=== PATIENT | female | born 2000 | race Caucasian/White ===

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

== ENCOUNTER 2022-01-07 15:46 | Emergency (ER) | payer OTHER ==
[~2022-01-07] VITALS: Ht 154.9 cm; Wt 64.9 kg
--- OUTSIDE RECORDS SUMMARY | 2022-01-07 15:54 | XMS ---
PreManage Notification: SARAH BETH RODRIGUEZ Security Sandfill Operator Events No recent Security Events currently on file CRITERIA MET - [facility] - Has Care Guidelines - [facility] - 2 Visits in 30 Days CARE PROVIDERS RADHA MCGUIRE [facility] 09/24/2019-Current PHONE: [phone] [facility] 06/08/2018-Current [facility] PHONE: Unknown Guidelines Source: [facility] Guidelines Date: 12/14/2021 Care Coordination: 11/30/21 PCP VISIT ATTACHED FOR CARE PLAN. SEE ATTACHMENTS. PATIENT IS SEEING PCP AND CAN COME IN FOR INJECTIONS FOR NAUSEA. HAS NOT BEEN FILLING RX FOR NAUSEA FOR HOME USE. HAS BEEN WORKED UP MANY TIMES FOR DX OF MILD GASTRITIS. BELIEVED TO BE AN EMOTIONAL COMPONENT. SUGGEST OR ENCOURAGE MENTAL HEALTH EVAL WITH [facility]. REMIND PATIENT SHE IS TO USE HOME NAUSEA MEDS. ALSO THAT ED IS NOT FOR CHRONIC PROBLEMS AND SHE IS TO CALL PCP OFFICE WHEN HOME MEDS ARE NOT WORKING. Additional care guidelines exist for the following facilities: [facility] ( 12/13/2019 ) Care History Medical/Surgical 09/02/2019 [facility] - UPDATE: PATIENT IS CURRENTLY WAITING TO ESTABLISH CARE WITH DR MCGUIRE - DR BABCOCK OFFICE - DR SEPULVEDA CURRENTLY REVIEWING PATIENT RECORDS - CHW CONTACTED [facility] GASTROENTEROLOGY OFFICE- DR THOMAS- [phone]-PATIENT HAS AN APT WITH DR THOMAS ON 09/16/19. - GOING FORWARD PLEASE HAVE ANY GASTRO COMPLICATIONS- ED RECORDS FAXED TO PATIENT CERTIFIED CAREGIVER WAS NOT AWARE OF ED VISITS AND WOULD LIKE TO HAVE MEDICAL RECORDS SENT TO HIS OFFICE IF PATIENT IS SEEN DUE TO GASTRO COMPLICATIONS. - [facility] MEDICAL RECORDS CONTACTED- PAST/RECENT ED RECORDS WILL BE FAXED TO CERTIFIED CAREGIVER OFFICE. 08/23/2019 [facility] PLEASE REFER PATIENT TO THE WALK IN CLINIC FOR -CHRONIC NAUSEA SYMPTOMS- PATIENT NEEDS TO FOLLOW UP WITH A PRIMARY CARE PHYSICIAN AND ESTABLISH CARE(PROVIDER DISCRETION) 08/21/2019 [facility] - W RECEIVED CALL FROM PATIENT PCP OFFICE. [facility] IS NO LONGER PATIENT PCP. - PATIENT NEEDS TO ESTABLISH CARE WITH A PRIMARY CARE PHYSICIAN. E.D. VISIT COUNT (12 MO.) 6 [facility] TOTAL 6 NOTE: Visits indicate total known visits. ED/UCC VISIT TRACKING (12 MO.) 01/07/2022 15:46 [facility] TYPE: Emergency COMPLAINT: - VOMITING 12/11/2021 10:04 [facility] TYPE: Emergency COMPLAINT: - VOMITING DIAGNOSES: - Cyclical vomiting syndrome unrelated to migraine - Other buttermaker (current) drug therapy - Upper abdominal pain, unspecified 12/09/2021 11:58 [facility] TYPE: Emergency COMPLAINT: - VOMITING DIAGNOSES: - Cyclical vomiting syndrome unrelated to migraine - Vomiting, unspecified - Other buttermaker (current) drug therapy 11/20/2021 12:[address] [facility] [place] TYPE: Emergency COMPLAINT: - VOMITING, FOR A WEEK DIAGNOSES: - Cyclical vomiting syndrome unrelated to migraine - Other buttermaker (current) drug therapy - Nausea with vomiting, unspecified 06/25/2021 02:[address] [facility] [place] TYPE: Emergency COMPLAINT: - VOMITING DIAGNOSES: - Nausea with vomiting, unspecified - Other prison (current) drug therapy - Cyclical vomiting syndrome unrelated to migraine 04/07/2021 18:[address] [facility] [place] TYPE: Emergency COMPLAINT: - VOMITING, ABD PAIN DIAGNOSES: - Cyclical vomiting syndrome unrelated to migraine - Vomiting, unspecified INPATIENT VISIT TRACKING (12 MO.) No inpatient visits to display in this time frame [id number]
[2022-01-07] MEDS ORDERED: OMEPRAZOLE40 MG PO (16:05)
[2022-01-07] MEDS ORDERED: ONDANSETRON ODT8 MG PO (19:02)
--- NOTE | 2022-01-09 13:45 | EKG ---
[facility] [address] [facility] [place], [place] [address] S[address] Sinus tachycardia Nonspecific ST abnormality Abnormal ECG No previous ECGs available Confirmed by JULITA LUCIANO MD ([id number]) on 01/09/2022 1:44:53 PM Electronically Signed By: JULITA LUCIANO MD 01/09/22 1345 PATIENT NAME: SARAH BETH RODRIGUEZ LACEY Electrocardiogram DATE OF : [birth year] PHYSICIAN: JULITA LUCIANO MD REPORT #: [id number] REPORT IS CONFIDENTIAL AND NOT TO BE RELEASED WITHOUT AUTHORIZATION
== END 2022-01-07 20:02 | disposition home or self-care (01) ==
LOC: ED 15:46
DX: E86.0 Dehydration (principal); R11.10 Vomiting, unspecified; R00.0 Tachycardia, unspecified; Z79.899 Other long term (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
CPT/HCPCS: 36415; 80053; 81001; 83690; 84703; 85025; 93005; 93010; 96374; 96375; 99284-25; J1200; J1630; J2405; J2765; J7030

== ENCOUNTER 2022-03-10 15:33 | Emergency (ER) | payer OTHER ==
[~2022-03-10] VITALS: Ht 154.9 cm; Wt 67.4 kg
[~2022-03-10 15:33] MED LIST changes: +OMEPRAZOLE40 MG PO
--- OUTSIDE RECORDS SUMMARY | 2022-03-10 15:40 | XMS ---
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 ( 12/13/2019 ) Care History Medical/Surgical 09/02/2019 [facility] - UPDATE: PATIENT IS CURRENTLY WAITING TO ESTABLISH CARE WITH DR MCGUIRE - DR BABCOCK OFFICE - DR SEPULVEDA CURRENTLY REVIEWING PATIENT RECORDS - CHW CONTACTED [facility] GASTROENTEROLOGY OFFICE- DR THOMAS- [phone]-PATIENT HAS AN APT WITH DR THOMAS ON 09/16/19. - GOING FORWARD PLEASE HAVE ANY GASTRO COMPLICATIONS- ED RECORDS FAXED TO [phone] PATIENT CONFERENCE SERVICES DIRECTOR WAS NOT AWARE OF ED VISITS AND WOULD LIKE TO HAVE MEDICAL RECORDS SENT TO HIS OFFICE IF PATIENT IS SEEN DUE TO GASTRO COMPLICATIONS. - [facility] MEDICAL RECORDS CONTACTED- PAST/RECENT ED RECORDS WILL BE FAXED TO CONFERENCE SERVICES DIRECTOR OFFICE. 08/23/2019 [facility] PLEASE REFER PATIENT TO THE WALK IN CLINIC FOR -CHRONIC NAUSEA SYMPTOMS- PATIENT NEEDS TO FOLLOW UP WITH A PRIMARY CARE PHYSICIAN AND ESTABLISH CARE(PROVIDER DISCRETION) 08/21/2019 [facility] - W RECEIVED CALL FROM PATIENT PCP OFFICE. [facility] IS NO LONGER PATIENT PCP. - PATIENT NEEDS TO ESTABLISH CARE WITH A PRIMARY CARE PHYSICIAN. E.D. VISIT COUNT (12 MO.) 7 [facility]. TOTAL 7 NOTE: Visits indicate total known visits. ED/UCC VISIT TRACKING (12 MO.) 03/10/2022 15:33 [facility] TYPE: Emergency COMPLAINT: - VOMITING 01/07/2022 15:46 [facility] TYPE: Emergency COMPLAINT: - VOMITING DIAGNOSES: - Vomiting, unspecified - Other rn long term care (current) drug therapy - Tachycardia, unspecified - Dehydration 12/11/2021 10:04 [facility] [place] TYPE: Emergency COMPLAINT: - VOMITING DIAGNOSES: - Cyclical vomiting syndrome unrelated to migraine - Other retirement (current) drug therapy - Upper abdominal pain, unspecified 12/09/2021 11:58 [facility] [place] [facility] [place] TYPE: Emergency COMPLAINT: - VOMITING DIAGNOSES: - Cyclical vomiting syndrome unrelated to migraine - Vomiting, unspecified - Other retirement (current) drug therapy 11[facility]20/2021 12[facility] COMPLAINT: - VOMITING, FOR A WEEK DIAGNOSES: - Cyclical vomiting syndrome unrelated to migraine - Other retirement (current) drug therapy - Nausea with vomiting, unspecified 06/25/2021 02:[facility] COMPLAINT: - VOMITING DIAGNOSES: - Nausea with vomiting, unspecified - Other retirement (current) drug therapy - Cyclical vomiting syndrome unrelated to migraine 04/07/2021 18:[address] [facility] [place] TYPE: Emergency COMPLAINT: - VOMITING, ABD PAIN DIAGNOSES: - Cyclical vomiting syndrome unrelated to migraine - Vomiting, unspecified INPATIENT VISIT TRACKING (12 MO.) No inpatient visits to display in this time frame [id number]
== END 2022-03-10 18:57 | disposition home or self-care (01) ==
LOC: ED 15:33
DX: R11.11 Vomiting without nausea (principal); Z88.8 Allergy status to other drugs, medicaments and biological substances; Z79.899 Other long term (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
CPT/HCPCS: 36415; 80053; 81001; 83690; 84703; 85025; 96361; 96374; 96375; 99284-25; J1200; J1885; J2765; J7030

== ENCOUNTER 2022-03-11 16:56 | Emergency (ER) | payer OTHER ==
[~2022-03-11] VITALS: Ht 154.9 cm; Wt 67.4 kg
--- OUTSIDE RECORDS SUMMARY | 2022-03-11 17:04 | XMS ---
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 No recent Security Events currently on file CRITERIA MET - [facility] - Has Care Guidelines - [facility] - 2 Visits in 30 Days - 6 ED Visits in 6 Months CARE PROVIDERS RADHA MCGUIRE [facility] 09/24/2019-Current PHONE: [phone] [facility] 06/08/2018-Current [facility] PHONE: Unknown Guidelines Source: [facility] Guidelines Date: 12/14/2021 Care Coordination: 11/30/21 PCP [...] care guidelines exist for the following facilities: [facility] ( 12/13/2019 ) Care History Medical/Surgical 09/02/2019 [facility] - UPDATE: PATIENT IS CURRENTLY WAITING TO ESTABLISH CARE WITH DR MCGUIRE - DR BABCOCK OFFICE - DR SEPULVEDA CURRENTLY REVIEWING PATIENT RECORDS - CHW CONTACTED [facility] GASTROENTEROLOGY OFFICE- DR THOMAS- [phone]-PATIENT HAS AN APT WITH DR THOMAS ON 09/16/19. - GOING FORWARD PLEASE HAVE ANY GASTRO COMPLICATIONS- ED RECORDS FAXED TO PATIENT RUBBER STAMP MAKER WAS NOT AWARE OF ED VISITS AND WOULD LIKE TO HAVE MEDICAL RECORDS SENT TO HIS OFFICE IF PATIENT IS SEEN DUE TO GASTRO COMPLICATIONS. - [facility] MEDICAL RECORDS CONTACTED- PAST/RECENT ED RECORDS WILL BE FAXED TO RUBBER STAMP MAKER OFFICE. 08/23/2019 [facility] PLEASE REFER PATIENT TO THE WALK IN CLINIC FOR -CHRONIC NAUSEA SYMPTOMS- PATIENT NEEDS TO FOLLOW UP WITH A PRIMARY CARE PHYSICIAN AND ESTABLISH CARE(PROVIDER DISCRETION) 08/21/2019 [facility] - CHW RECEIVED CALL FROM PATIENT PCP OFFICE. [facility] IS NO LONGER PATIENT PCP. - PATIENT NEEDS TO ESTABLISH CARE WITH A PRIMARY CARE PHYSICIAN. E.D. VISIT COUNT (12 MO.) 8 [facility]. TOTAL 8 NOTE: Visits indicate total known visits. ED/UCC VISIT TRACKING (12 MO.) 03/11/2022 16:57 [facility] TYPE: Emergency COMPLAINT: - VOMITING, CHILLS 03/10/2022 15:33 [facility] [place] TYPE: Emergency COMPLAINT: - VOMITING 01/07/2022 15:46 [facility] [place] TYPE: Emergency COMPLAINT: - VOMITING DIAGNOSES: - Vomiting, unspecified - Other intermediate frame tender (current) drug therapy - Tachycardia, unspecified - Dehydration 12/11/2021 10:[facility] [place] TYPE: Emergency COMPLAINT: - VOMITING DIAGNOSES: - Cyclical vomiting syndrome unrelated to migraine - Other intermediate frame tender (current) drug therapy - Upper abdominal pain, unspecified 12/09/2021 11:58 [facility] [place] [facility] COMPLAINT: - VOMITING DIAGNOSES: - Cyclical vomiting syndrome unrelated to migraine - Vomiting, unspecified - Other intermediate (current) drug therapy 11/20/2021 12:53 [facility] [place] [facility]: [facility] COMPLAINT: - VOMITING, FOR A WEEK DIAGNOSES: - Cyclical vomiting syndrome unrelated to migraine - Other intermediate (current) drug therapy - Nausea with vomiting, unspecified 06/25/2021 02:08 [facility] TYPE: Emergency COMPLAINT: - VOMITING DIAGNOSES: - Nausea with vomiting, unspecified - Other intermediate (current) drug therapy - Cyclical vomiting syndrome unrelated to migraine 04/07/2021 18:57 [facility] TYPE: Emergency COMPLAINT: - VOMITING, ABD PAIN DIAGNOSES: - Cyclical vomiting syndrome unrelated to migraine - Vomiting, unspecified INPATIENT VISIT TRACKING (12 MO.) No inpatient visits to display in this time frame [email or web address]
== END 2022-03-11 21:45 | disposition left against medical advice (07) ==
LOC: ED 16:56
DX: R10.13 Epigastric pain (principal); Z88.8 Allergy status to other drugs, medicaments and biological substances; Z79.899 Other long term (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
CPT/HCPCS: 36415; 80048; 82553; 83735; 96361; 96374; 96375; 99284-25; J0515; J1200; J1790; J2060; J7030

== ENCOUNTER 2022-04-26 14:17 | Emergency (ER) | payer OTHER ==
[~2022-04-26] VITALS: Ht 154.9 cm; Wt 68.3 kg
[~2022-04-26 14:17] MED LIST changes: +SERTRALINE HCL100 MG PO
--- OUTSIDE RECORDS SUMMARY | 2022-04-26 14:26 | XMS ---
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 - Patient with suicidal and/or homicidal ideations eloped. - Patient eloped with IV in place. Details: PATIENT LEFT AMA CRITERIA MET - [facility] - 2 Visits in 30 Days - [facility] - Has Care Guidelines - 6 ED Visits in 6 Months CARE PROVIDERS RADHA MCGUIRE [facility] 09/24/2019-Current PHONE: [phone] [facility] 06/08/2018-Current [facility] PHONE: Unknown Guidelines Source: [facility] Guidelines Date: 12/14/2021 Care Coordination: 11/30/21 [...] care guidelines exist for the following facilities: [facility] ( 12/13/2019 ) Care History Medical/Surgical 09/02/2019 [facility] - UPDATE: PATIENT IS CURRENTLY WAITING TO ESTABLISH CARE WITH DR MCGUIRE - DR BABCOCK OFFICE - DR SEPULVEDA CURRENTLY REVIEWING PATIENT RECORDS - CHW CONTACTED [facility] GASTROENTEROLOGY OFFICE- DR THOMAS- [phone]-PATIENT HAS AN APT WITH DR THOMAS ON 09/16/19. - GOING FORWARD PLEASE HAVE ANY GASTRO COMPLICATIONS- ED RECORDS FAXED TO PATIENT CLINICAL NURSE OCCUPATIONAL MEDICINE WAS NOT AWARE OF ED VISITS AND WOULD LIKE TO HAVE MEDICAL RECORDS SENT TO HIS OFFICE IF PATIENT IS SEEN DUE TO GASTRO COMPLICATIONS. - [facility] MEDICAL RECORDS CONTACTED- PAST/RECENT ED RECORDS WILL BE FAXED TO CLINICAL NURSE OCCUPATIONAL MEDICINE OFFICE. 08/23/2019 [facility] PLEASE REFER PATIENT TO THE WALK IN CLINIC FOR -CHRONIC NAUSEA SYMPTOMS- PATIENT NEEDS TO FOLLOW UP WITH A PRIMARY CARE PHYSICIAN AND ESTABLISH CARE(PROVIDER DISCRETION) 08/21/2019 [facility] - CHW RECEIVED CALL FROM PATIENT PCP OFFICE. [facility] IS NO LONGER PATIENT PCP. - PATIENT NEEDS TO ESTABLISH CARE WITH A PRIMARY CARE PHYSICIAN. E.D. VISIT COUNT (12 MO.) [address] [facility] TOTAL 10 NOTE: Visits indicate total known visits. ED/UCC VISIT TRACKING (12 MO.) 04/26/2022 14:18 [facility] [place] TYPE: Emergency COMPLAINT: - VOMITING, ABD PAIN 04/25/2022 16:18 [facility] [place] TYPE: Emergency COMPLAINT: - VOMITING 04/04/2022 18:49 [facility] [place] TYPE: Emergency COMPLAINT: - VOMITING DIAGNOSES: - Unspecified abdominal pain - Allergy status to other drugs, medicaments and biological substances - Allergy status to narcotic agent - Tachycardia, unspecified - Nausea with vomiting, unspecified - Other fpc (current) drug therapy 03/11/2022 16:57 [facility] [place] TYPE: Emergency COMPLAINT: - VOMITING, CHILLS DIAGNOSES: - Allergy status to other drugs, medicaments and biological substances - Epigastric pain - Other terminal manager (current) drug therapy 03/10/2022 15:33 [facility] [place] TYPE: Emergency COMPLAINT: - VOMITING DIAGNOSES: - Vomiting without nausea - Allergy status to other drugs, medicaments and biological substances - Unspecified abdominal pain - Other terminal manager (current) drug therapy 01/07/2022 15:46 [facility] [place] TYPE: Emergency COMPLAINT: - VOMITING DIAGNOSES: - Vomiting, unspecified - Other terminal manager (current) drug therapy - Tachycardia, unspecified - Dehydration 12/11/2021 10:04 [facility] [place] TYPE: Emergency COMPLAINT: - VOMITING DIAGNOSES: - Cyclical vomiting syndrome unrelated to migraine - Other terminal manager (current) drug therapy - Upper abdominal pain, unspecified 12/09/2021 11:58 [facility] [place] TYPE: Emergency COMPLAINT: - VOMITING DIAGNOSES: - Cyclical vomiting syndrome unrelated to migraine - Vomiting, unspecified - Other fpc (current) drug therapy 11/20/2021 12:53 [facility] [place] TYPE: Emergency COMPLAINT: - VOMITING, FOR A WEEK DIAGNOSES: - Cyclical vomiting syndrome unrelated to migraine - Other fpc (current) drug therapy - Nausea with vomiting, unspecified 06/25/2021 02:08 [facility] [place] TYPE: Emergency COMPLAINT: - VOMITING DIAGNOSES: - Nausea with vomiting, unspecified - Other fpc (current) drug therapy - Cyclical vomiting syndrome unrelated to migraine INPATIENT VISIT TRACKING (12 MO.) No inpatient visits to display in this time frame [email or web address]
[2022-04-26] MEDS ORDERED: ATIVAN1 MG PO (15:17)
== END 2022-04-26 16:44 | disposition home or self-care (01) ==
LOC: ED 14:17
DX: R11.15 Cyclical vomiting syndrome unrelated to migraine (principal); Z88.8 Allergy status to other drugs, medicaments and biological substances; Z79.899 Other long term (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
CPT/HCPCS: 36415; 80053; 84703; 85025; 96361; 96374; 96375; 99284-25; J1200; J2060; J2405; J7030

== ENCOUNTER 2022-04-28 02:55 | Emergency (ER) | payer OTHER ==
[~2022-04-28] VITALS: Ht 154.9 cm; Wt 62.2 kg
[~2022-04-28 02:55] MED LIST changes: +ATIVAN1 MG PO
--- OUTSIDE RECORDS SUMMARY | 2022-04-28 02:58 | XMS ---
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 - Patient with suicidal and/or homicidal ideations eloped. - Patient eloped with IV in place. Details: PATIENT LEFT AMA CRITERIA MET - 6 ED Visits in 6 Months - [facility] - Has Care Guidelines - [facility] - 2 Visits in 30 Days CARE PROVIDERS RADHA MCGUIRE [facility] 09/24/2019-Current PHONE: [phone] [facility] 06/08/2018-Current [facility] PHONE: Unknown Guidelines Source: [facility] Guidelines Date: 12/14/2021 Care Coordination: 11/30/21 [...] care guidelines exist for the following facilities: [facility] ( 12/13/2019 ) Care History Medical/Surgical 09/02/2019 [facility] - UPDATE: PATIENT IS CURRENTLY WAITING TO ESTABLISH CARE WITH DR MCGUIRE - DR BABCOCK OFFICE - DR SEPULVEDA CURRENTLY REVIEWING PATIENT RECORDS - CHW CONTACTED [facility] GASTROENTEROLOGY OFFICE- DR THOMAS- [phone]-PATIENT HAS AN APT WITH DR THOMAS ON 09/16/19. - GOING FORWARD PLEASE HAVE ANY GASTRO COMPLICATIONS- ED RECORDS FAXED TO PATIENT CUSTODIAL SUPERVISOR WAS NOT AWARE OF ED VISITS AND WOULD LIKE TO HAVE MEDICAL RECORDS SENT TO HIS OFFICE IF PATIENT IS SEEN DUE TO GASTRO COMPLICATIONS. - [facility] MEDICAL RECORDS CONTACTED- PAST/RECENT ED RECORDS WILL BE FAXED TO CUSTODIAL SUPERVISOR OFFICE. 08/23/2019 [facility] PLEASE REFER PATIENT TO THE WALK IN CLINIC FOR -CHRONIC NAUSEA SYMPTOMS- PATIENT NEEDS TO FOLLOW UP WITH A PRIMARY CARE PHYSICIAN AND ESTABLISH CARE(PROVIDER DISCRETION) 08/21/2019 [facility] - CHW RECEIVED CALL FROM PATIENT PCP OFFICE. [facility] IS NO LONGER PATIENT PCP. - PATIENT NEEDS TO ESTABLISH CARE WITH A PRIMARY CARE PHYSICIAN. E.D. VISIT COUNT (12 MO.) [address] [facility] TOTAL 11 NOTE: Visits indicate total known visits. ED/UCC VISIT TRACKING (12 MO.) 04/28/2022 02:56 [facility] [place] TYPE: Emergency COMPLAINT: - VOMITING 04/26/2022 14:18 [facility] [place] TYPE: Emergency COMPLAINT: - VOMITING, ABD PAIN 04/25/2022 16:18 [facility] [place] TYPE: Emergency COMPLAINT: - VOMITING 04/04/2022 18:49 [facility] [place] TYPE: Emergency COMPLAINT: - VOMITING DIAGNOSES: - Unspecified abdominal pain - Allergy status to other drugs, medicaments and biological substances - Allergy status to narcotic agent - Tachycardia, unspecified - Nausea with vomiting, unspecified - Other automatic teller machine servicer (current) drug therapy 03/11/2022 16:57 [facility] [place] TYPE: Emergency COMPLAINT: - VOMITING, CHILLS DIAGNOSES: - Allergy status to other drugs, medicaments and biological substances - Epigastric pain - Other halfway (current) drug therapy 03/10/2022 15:33 [facility] [place] TYPE: Emergency COMPLAINT: - VOMITING DIAGNOSES: - Vomiting without nausea - Allergy status to other drugs, medicaments and biological substances - Unspecified abdominal pain - Other halfway (current) drug therapy 01/07/2022 15:46 [facility] [place] TYPE: Emergency COMPLAINT: - VOMITING DIAGNOSES: - Vomiting, unspecified - Other halfway (current) drug therapy - Tachycardia, unspecified - Dehydration 12/11/2021 10:04 [facility] [place] TYPE: Emergency COMPLAINT: - VOMITING DIAGNOSES: - Cyclical vomiting syndrome unrelated to migraine - Other halfway (current) drug therapy - Upper abdominal pain, unspecified 12/09/2021 11:58 [facility] [place] TYPE: Emergency COMPLAINT: - VOMITING DIAGNOSES: - Cyclical vomiting syndrome unrelated to migraine - Vomiting, unspecified - Other automatic teller machine servicer (current) drug therapy 11/20/2021 12:53 [facility] [place] TYPE: Emergency COMPLAINT: - VOMITING, FOR A WEEK DIAGNOSES: - Cyclical vomiting syndrome unrelated to migraine - Other automatic teller machine servicer (current) drug therapy - Nausea with vomiting, unspecified 06/25/2021 02:08 [facility] [place] TYPE: Emergency COMPLAINT: - VOMITING DIAGNOSES: - Nausea with vomiting, unspecified - Other automatic teller machine servicer (current) drug therapy - Cyclical vomiting syndrome unrelated to migraine INPATIENT VISIT TRACKING (12 MO.) No inpatient visits to display in this time frame [email or web address]
== END 2022-04-28 06:49 | disposition home or self-care (01) ==
LOC: ED 02:55
DX: R11.15 Cyclical vomiting syndrome unrelated to migraine (principal); E87.6 Hypokalemia; Z88.8 Allergy status to other drugs, medicaments and biological substances; Z79.899 Other long term (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
CPT/HCPCS: 36415; 80053; 81001; 84703; 85025; 96361; 96374; 96375; 99284-25; J2405; J7030

== ENCOUNTER 2022-05-21 12:54 | Emergency (ER) | payer OTHER ==
[~2022-05-21] VITALS: Ht 154.9 cm; Wt 62.2 kg
[2022-05-21] MEDS ORDERED: ONDANSETRON ODT4 MG PO (17:42)
== END 2022-05-21 18:42 | disposition home or self-care (01) ==
LOC: ED 12:54
DX: R11.15 Cyclical vomiting syndrome unrelated to migraine (principal); E83.42 Hypomagnesemia; Z88.8 Allergy status to other drugs, medicaments and biological substances; Z79.899 Other long term (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
CPT/HCPCS: 36415; 80053; 81001; 83735; 84703; 85025; 96361; 96374; 96375; 99284-25; J1100; J2060; J3475; J7030; J7040

== ENCOUNTER 2022-06-19 18:35 | Emergency (ER) | payer OTHER ==
[~2022-06-19] VITALS: Ht 157.5 cm; Wt 65.8 kg
[~2022-06-19 18:35] MED LIST changes: +ONDANSETRON ODT4 MG PO
--- OUTSIDE RECORDS SUMMARY | 2022-06-19 18:38 | XMS ---
PreManage Notification: SARAH BETH RODRIGUEZ Security Residential Sales Rep Events 1 event(s) in the past 18 months Most recent security events: Elopement at [facility] 03/11/2022 16:57 - Patient eloped before treatment completed. - Patient with suicidal and/or homicidal ideations eloped. - Patient eloped with IV in place. Details: PATIENT LEFT AMA CRITERIA MET - [facility] - Has Care Guidelines - [facility] - 2 Visits in 30 Days - 6 ED Visits in 6 Months CARE PROVIDERS RADHA MCGUIRE [facility] 09/24/2019-Current PHONE: [phone] [facility] 06/08/2018-Current [facility] PHONE: Unknown Guidelines Source: [facility] Guidelines Date: 12/14/2021 Care Coordination: 11/30/21 [...] care guidelines exist for the following facilities: [facility] ( 12/13/2019 ) Care History Medical/Surgical 09/02/2019 [facility] - UPDATE: PATIENT IS CURRENTLY WAITING TO ESTABLISH CARE WITH DR MCGUIRE - DR BABCOCK OFFICE - DR SEPULVEDA CURRENTLY REVIEWING PATIENT RECORDS - CHW CONTACTED [facility] GASTROENTEROLOGY OFFICE- DR THOMAS- [phone]-PATIENT HAS AN APT WITH DR THOMAS ON 09/16/19. - GOING FORWARD PLEASE HAVE ANY GASTRO COMPLICATIONS- ED RECORDS FAXED TO PATIENT LIP CUTTER AND SCORER WAS NOT AWARE OF ED VISITS AND WOULD LIKE TO HAVE MEDICAL RECORDS SENT TO HIS OFFICE IF PATIENT IS SEEN DUE TO GASTRO COMPLICATIONS. - [facility] MEDICAL RECORDS CONTACTED- PAST/RECENT ED RECORDS WILL BE FAXED TO LIP CUTTER AND SCORER OFFICE. 08/23/2019 [facility] PLEASE REFER PATIENT TO THE WALK IN CLINIC FOR -CHRONIC NAUSEA SYMPTOMS- PATIENT NEEDS TO FOLLOW UP WITH A PRIMARY CARE PHYSICIAN AND ESTABLISH CARE(PROVIDER DISCRETION) 08/21/2019 [facility] - CHW RECEIVED CALL FROM PATIENT PCP OFFICE. [facility] IS NO LONGER PATIENT PCP. - PATIENT NEEDS TO ESTABLISH CARE WITH A PRIMARY CARE PHYSICIAN. E.D. VISIT COUNT (12 MO.) [address] [facility] [place] TOTAL 13 NOTE: Visits indicate total known visits. ED/UCC VISIT TRACKING (12 MO.) 06/19/2022 18:35 [facility] [place] TYPE: Emergency COMPLAINT: - VOMITING 05/21/2022 12:54 [facility] [place] TYPE: Emergency COMPLAINT: - VOMITING DIAGNOSES: - Allergy status to other drugs, medicaments and biological substances - Hypomagnesemia - Other nursing home (current) drug therapy - Cyclical vomiting syndrome unrelated to migraine - Vomiting, unspecified 04/28/2022 02:56 [facility] [place] TYPE: Emergency COMPLAINT: - VOMITING DIAGNOSES: - Hypokalemia - Cyclical vomiting syndrome unrelated to migraine - Allergy status to other drugs, medicaments and biological substances - Vomiting, unspecified - Other nursing home (current) drug therapy 04/26/2022 14:18 [facility] [place] TYPE: Emergency COMPLAINT: - VOMITING, ABD PAIN DIAGNOSES: - Allergy status to other drugs, medicaments and biological substances - Vomiting, unspecified - Cyclical vomiting syndrome unrelated to migraine - Other nursing home (current) drug therapy 04/25/2022 16:18 [facility] [place] TYPE: Emergency COMPLAINT: - VOMITING 04/04/2022 18:49 [facility] [place] TYPE: Emergency COMPLAINT: - VOMITING DIAGNOSES: - Tachycardia, unspecified - Allergy status to other drugs, medicaments and biological substances - Nausea with vomiting, unspecified - Allergy status to narcotic agent - Unspecified abdominal pain - Other nursing home (current) drug therapy 03/11/2022 16:[address] [facility] [place] TYPE: Emergency COMPLAINT: - VOMITING, CHILLS DIAGNOSES: - Epigastric pain - Other nursing home (current) drug therapy - Allergy status to other drugs, medicaments and biological substances 03/10/2022 15:[address] [facility] [place] TYPE: Emergency COMPLAINT: - VOMITING DIAGNOSES: - Other nursing home (current) drug therapy - Allergy status to other drugs, medicaments and biological substances - Unspecified abdominal pain - Vomiting without nausea 01/07/2022 15:[address] [facility] [place] TYPE: Emergency COMPLAINT: - VOMITING DIAGNOSES: - Dehydration - Other termite inspector (current) drug therapy - Tachycardia, unspecified - Vomiting, unspecified 12/11/2021 10:04 [facility] [place] TYPE: Emergency COMPLAINT: - VOMITING DIAGNOSES: - Other nursing home (current) drug therapy - Upper abdominal pain, unspecified - Cyclical vomiting syndrome unrelated to migraine 12/09/2021 11:58 [facility] [place] TYPE: Emergency COMPLAINT: - VOMITING DIAGNOSES: - Vomiting, unspecified - Other termite inspector (current) drug therapy - Cyclical vomiting syndrome unrelated to migraine 11/20/2021 12:53 [facility] [place] TYPE: Emergency COMPLAINT: - VOMITING, FOR A WEEK DIAGNOSES: - Other termite inspector (current) drug therapy - Nausea with vomiting, unspecified - Cyclical vomiting syndrome unrelated to migraine 06/25/2021 02:08 [facility] [place] TYPE: Emergency COMPLAINT: - VOMITING DIAGNOSES: - Other termite inspector (current) drug therapy - Cyclical vomiting syndrome unrelated to migraine - Nausea with vomiting, unspecified INPATIENT VISIT TRACKING (12 MO.) No inpatient visits to display in this time frame [email or web address]
[2022-06-19] MEDS ORDERED: SUMATRIPTAN20 MG NAS (19:39)
[2022-06-19] MEDS ORDERED: K-TAB ER20 MEQ PO (22:14)
[2022-06-19] MEDS ORDERED: CARAFATE1 GM PO (22:14)
[2022-06-19] MEDS ORDERED: BENADRYL25 MG PO (22:14)
[2022-06-19] MEDS ORDERED: ONDANSETRON ODT8 MG PO (22:14)
== END 2022-06-19 23:59 | disposition home or self-care (01) ==
LOC: ED 18:35
DX: R11.15 Cyclical vomiting syndrome unrelated to migraine (principal); R10.84 Generalized abdominal pain; E87.6 Hypokalemia; J98.2 Interstitial emphysema; Z88.8 Allergy status to other drugs, medicaments and biological substances; Z79.899 Other long term (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; Z20.822 Contact with and (suspected) exposure to COVID-19
CPT/HCPCS: 36415; 74177; 80053; 81001; 84703; 85025; 87502; 96361; 96375; 99284-25; A9270; J1200; J2405; J7030; Q9967; U0003

== ENCOUNTER 2022-07-11 15:22 | Emergency (ER) | payer OTHER ==
[~2022-07-11] VITALS: Ht 157.5 cm; Wt 65.8 kg
[~2022-07-11 15:22] MED LIST changes: +BENADRYL25 MG PO; +K-TAB ER20 MEQ PO; +SUMATRIPTAN20 MG NAS
--- OUTSIDE RECORDS SUMMARY | 2022-07-11 15:24 | XMS ---
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 - Patient with suicidal and/or homicidal ideations eloped. - Patient eloped with IV in place. Details: PATIENT LEFT AMA CRITERIA MET - [facility] - 2 Visits in 30 Days - [facility] - Has Care Guidelines - 6 ED Visits in 6 Months CARE PROVIDERS RADHA MCGUIRE [facility] 09/24/2019-Current PHONE: [phone] [facility] 06/08/2018-Current [facility] PHONE: Unknown Guidelines Source: [facility] Guidelines Date: 12/14/2021 Care Coordination: [...] care guidelines exist for the following facilities: [facility] ( 12/13/2019 ) Care History Medical/Surgical 09/02/2019 [facility] - UPDATE: PATIENT IS CURRENTLY WAITING TO ESTABLISH CARE WITH DR MCGUIRE - DR BABCOCK OFFICE - DR SEPULVEDA CURRENTLY REVIEWING PATIENT RECORDS - CHW CONTACTED [facility] GASTROENTEROLOGY OFFICE- DR THOMAS- [phone]-PATIENT HAS AN APT WITH DR THOMAS ON 09/16/19. 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 - [facility] MEDICAL RECORDS CONTACTED- PAST/RECENT ED RECORDS WILL BE FAXED TO ENERGY CROP FARMER OFFICE. 08/23/2019 [facility] PLEASE REFER PATIENT TO THE WALK IN CLINIC FOR -CHRONIC NAUSEA SYMPTOMS- PATIENT NEEDS TO FOLLOW UP WITH A PRIMARY CARE PHYSICIAN AND ESTABLISH CARE(PROVIDER DISCRETION) 08/21/2019 [facility] - CHW RECEIVED CALL FROM PATIENT PCP OFFICE. [facility] IS NO LONGER PATIENT PCP. - PATIENT NEEDS TO ESTABLISH CARE WITH A PRIMARY CARE PHYSICIAN. E.D. VISIT COUNT (12 MO.) [address] [facility] [facility] TOTAL 13 NOTE: Visits indicate total known visits. ED/UCC VISIT TRACKING (12 MO.) 07/11/2022 15:23 [facility] [place] TYPE: Emergency COMPLAINT: - VOMITING 06/19/2022 18:35 [facility] [place] TYPE: Emergency COMPLAINT: - VOMITING DIAGNOSES: - Hypokalemia - Allergy status to other drugs, medicaments and biological substances - Other longterm (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 - Interstitial emphysema - Generalized abdominal pain - Contact with and (suspected) exposure to COVID-19 - Cyclical vomiting syndrome unrelated to migraine 05/21/2022 12:54 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 [place] TYPE: Emergency COMPLAINT: - VOMITING DIAGNOSES: - Allergy status to other drugs, medicaments and biological substances - Vomiting, unspecified - Other longterm (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 - Hypokalemia - Cyclical vomiting syndrome unrelated to migraine 04/26/2022 14:18 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 [place] TYPE: Emergency COMPLAINT: - VOMITING 04/04/2022 18:49 [facility] [place] TYPE: Emergency COMPLAINT: - VOMITING DIAGNOSES: - Nausea with vomiting, unspecified - Allergy status to narcotic agent - Unspecified abdominal pain - Other longterm (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 - Tachycardia, unspecified - Allergy status to other drugs, medicaments and biological substances 03/11/2022 16:57 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 [place] [place] TYPE: Emergency COMPLAINT: - VOMITING DIAGNOSES: - Unspecified abdominal pain - Vomiting without nausea - Other longterm (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 - Allergy status to other drugs, medicaments and biological substances 01/07/2022 15:46 [facility] [place] TYPE: Emergency COMPLAINT: - VOMITING DIAGNOSES: - Tachycardia, unspecified - Vomiting, unspecified - Dehydration - Other longterm (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 12/11/2021 10:04 [facility] [place] TYPE: Emergency COMPLAINT: - VOMITING DIAGNOSES: - Upper abdominal pain, unspecified - Cyclical vomiting syndrome unrelated to migraine - Other longterm (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 12/09/2021 11:58 [facility] [place] TYPE: Emergency COMPLAINT: - VOMITING DIAGNOSES: - Other longterm (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 - Cyclical vomiting syndrome unrelated to migraine - Vomiting, unspecified 11/20/2021 12:[address] [facility] [address] [facility] [place] TYPE: Emergency COMPLAINT: - VOMITING, FOR A WEEK DIAGNOSES: - Nausea with vomiting, unspecified - Cyclical vomiting syndrome unrelated to migraine - Other longterm (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 INPATIENT VISIT TRACKING (12 MO.) No inpatient visits to display in this time frame [email or web address]
[2022-07-11] MEDS ORDERED: PROMETHAZINE HC25 M1 PO (19:00)
[2022-07-11] MEDS ORDERED: ONDANSETRON ODT8 MG PO (19:00)
== END 2022-07-11 19:49 | disposition home or self-care (01) ==
LOC: ED 15:22
DX: R11.15 Cyclical vomiting syndrome unrelated to migraine (principal); Z88.8 Allergy status to other drugs, medicaments and biological substances; Z79.899 Other long term (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
CPT/HCPCS: 36415; 80053; 81001; 83690; 84703; 85025; 96361; 96374; 96375; 99284-25; J1200; J2550; J7030

== ENCOUNTER 2022-08-08 16:24 | Emergency (ER) | payer OTHER ==
[~2022-08-08] VITALS: Ht 157.5 cm; Wt 65.8 kg
--- OUTSIDE RECORDS SUMMARY | 2022-08-08 16:26 | XMS ---
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 - Patient with suicidal and/or homicidal ideations eloped. - Patient eloped with IV in place. Details: PATIENT LEFT AMA CRITERIA MET - [facility] - Has Care Guidelines - [facility] - 2 Visits in 30 Days - 6 ED Visits in 6 Months CARE PROVIDERS RADHA MCGUIRE [facility] 09/24/2019-Current PHONE: [phone] [facility] 06/08/2018-Current [facility] PHONE: Unknown Guidelines Source: [facility] Guidelines Date: 12/14/2021 Care Coordination: 11/30/21 [...] care guidelines exist for the following facilities: [facility] ( 12/13/2019 ) Care History Medical/Surgical 09/02/2019 [facility] - UPDATE: PATIENT IS CURRENTLY WAITING TO ESTABLISH CARE WITH DR MCGUIRE - DR BABCOCK OFFICE - DR SEPULVEDA CURRENTLY REVIEWING PATIENT RECORDS - CHW CONTACTED [facility] GASTROENTEROLOGY OFFICE- DR THOMAS- [phone]-PATIENT HAS AN APT WITH DR THOMAS ON 09/16/19. 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 - [facility] MEDICAL RECORDS CONTACTED- PAST/RECENT ED RECORDS WILL BE FAXED TO TRAFFIC WORKFORCE REPRESENTATIVE OFFICE. 08/23/2019 [facility] PLEASE REFER PATIENT TO THE WALK IN CLINIC FOR -CHRONIC NAUSEA SYMPTOMS- PATIENT NEEDS TO FOLLOW UP WITH A PRIMARY CARE PHYSICIAN AND ESTABLISH CARE(PROVIDER DISCRETION) 08/21/2019 [facility] - CHW RECEIVED CALL FROM PATIENT PCP OFFICE. [facility] IS NO LONGER PATIENT PCP. - PATIENT NEEDS TO ESTABLISH CARE WITH A PRIMARY CARE PHYSICIAN. E.D. VISIT COUNT (12 MO.) [address] [facility] TOTAL 14 NOTE: Visits indicate total known visits. 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 - Allergy status to other drugs, medicaments and biological substances - Cyclical vomiting syndrome unrelated to migraine - Vomiting, unspecified 06/19/2022 18:35 [facility] [place]: [place] COMPLAINT: - VOMITING DIAGNOSES: - Allergy status to other drugs, medicaments and biological substances - Other fci (current) drug therapy - Interstitial emphysema - Generalized abdominal pain - Contact with and (suspected) exposure to COVID-19 - Cyclical vomiting syndrome unrelated to migraine - Hypokalemia 05/21/2022 12:54 [facility] [place] [place] TYPE: Emergency COMPLAINT: - VOMITING DIAGNOSES: - Cyclical vomiting syndrome unrelated to migraine - Vomiting, unspecified - Allergy status to other drugs, medicaments and biological substances - Hypomagnesemia - 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 04/28/2022 02:56 [facility] [place] [place] TYPE: Emergency COMPLAINT: - VOMITING DIAGNOSES: - Vomiting, unspecified - 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 [place] TYPE: Emergency COMPLAINT: - VOMITING, CHILLS DIAGNOSES: - Other fci (current) drug therapy - Allergy status to other drugs, medicaments and biological substances - Epigastric pain 03/10/2022 15:33 [facility] [place] TYPE: Emergency COMPLAINT: - VOMITING DIAGNOSES: - Unspecified abdominal pain - Vomiting without nausea - Other fci (current) drug therapy - Allergy status to other drugs, medicaments and biological substances [facility]07[facility]22 [facility] COMPLAINT: - VOMITING DIAGNOSES: - Tachycardia, unspecified - Vomiting, unspecified - Dehydration - 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
[2022-08-08] MEDS ORDERED: MEDROXYPRO150 MG/11 IM (18:06)
== END 2022-08-09 00:07 | disposition home or self-care (01) ==
LOC: ED 16:24
DX: R11.15 Cyclical vomiting syndrome unrelated to migraine (principal); Z88.8 Allergy status to other drugs, medicaments and biological substances
CPT/HCPCS: 36415; 80053; 81001; 83735; 84703; 85025; 87088; 96361; 96374; 96375; 99284-25; J1200; J2405; J2550; J7030; J7040